=== PATIENT | male | born 1990 | race Caucasian/White ===

== ENCOUNTER 2021-05-01 14:30 | Outpatient (CLI) | payer OTHER, SELFPAY ==
--- NOTE | ~2021-05-01 | XR_ITS ---
EXAMINATION: XR chest 2V EXAM DATE: 05/01/2021 15:08 INDICATION: Cough, chest pain from coughing. Negative COVID 19 test. TECHNIQUE: Frontal and lateral projections of the chest obtained and reviewed. There is no prior mya dy for comparison. FINDINGS: The lungs are clear. There are no pleural effusions. The cardiomediastinal silhouette is within normal limits. There is no pneumothorax suspected. The bones and soft tissues are unremarkab le. IMPRESSION: Normal chest x-ray exam. Reviewed, dictated and finalized at location [facility]. IMPRESSION: Normal chest x-ray exam.
[2021-05-01 14:53] LABS: Basophils Absolute Auto 0.05 K/mm3 (0.00-0.10); Basophils Percent Auto 0.7 % (0.0-1.0); Eosinophils Absolute Auto 0.17 K/mm3 (0.02-0.50); Eosinophils Percent Auto 2.3 % (1.0-6.0); Hematocrit 48.4 % (40.0-54.0); Immature Granulocyte Absolute 0.02 K/mm3 (0.00-0.00); Immature Granulocyte Percent A 0.3 % (0.0-0.0); Lymphocytes Percent Auto 20.6 % (18.0-42.0); Mean Corpuscular HGB Conc 33.1 g/dL (32.0-36.0); Mean Corpuscular Hemoglobin 28.5 pg (27.0-31.0); Mean Corpuscular Volume 86.3 fL (78.0-102.0); Mean Platelet Volume 9.5 fl (8.7-11.0); Monocytes Absolute Auto 0.55 K/mm3 (0.10-0.90); Monocytes Percent Auto 7.5 % (2.0-11.0); Neutrophils Percent Auto 68.6 % (50.0-70.0); Platelet Count Result 227 K/mm3 (150-420); Red Blood Count 5.61 M/mm3 (4.70-6.10); Red Cell Distribution Width 12.1 % (11.6-14.4); White Blood Count 7.3 K/mm3 (4.8-10.8)
[2021-05-01 15:12] LABS: Alanine Aminotransferase 25 U/L (16-63); Albumin Level 4.1 g/dL (3.4-5.0); Alkaline Phosphatase 76 U/L (46-116); Anion Gap 9 mmol/L (8-16); Aspartate Amino Transferase 10 U/L (15-37); Bilirubin,Total 0.4 mg/dL (0.00-1.00); Blood Urea Nitrogen 12 mg/dL (7-18); Calcium 9.4 mg/dL (8.5-10.1); Carbon Dioxide 32 mmol/L (21-32); Chloride 104 mmol/L (98-108); Estimated Glomerular Filt Rate > 60; Glucose 89 mg/dL (70-99); Osmolality Calculated 298 mOsm/kg (285-295); Potassium 4.4 mmol/L (3.5-5.1); Sodium 145 mmol/L (136-145); Total Protein 7.4 g/dL (6.4-8.2)
[2021-05-01 15:18] LABS: Influenza Control Valid (Valid)
== END 2021-05-01 14:31 | disposition home or self-care (01) ==
PROVIDERS: PCP Internal Medicine; Visit Provider Internal Medicine
DX: R05.9 Cough, unspecified (principal); Z20.822 Contact with and (suspected) exposure to COVID-19
CPT/HCPCS: 71046; 80053; 85025; 87081; 87804; 87880

== ENCOUNTER 2022-07-10 06:20 | Emergency (ER) | payer OTHER, SELFPAY ==
--- NOTE | ~2022-07-10 | CT_ITS ---
CT scan of the Neck Technique: 3 mm axial scans were obtained through the neck after intravenous administration of 75 cc Omnipaque. Coronal and sagittal reconstructions of the neck were obtained. Dose reduction technique w as used on this scan by utilizing automated exposure control and iterative reconstruction technique. The dose-length product (DLP) was 433.22 mGy-cm. Clinical History: Left-sided neck swelling Findings: Left submandibular gland is enlarged and edematous as compared to the right side. No distinct stone o r ductal dilatation of the left submandibular gland identified. There is associated surrounding infla mmatory stranding/infiltration of the soft tissues in the left submandibular region, with additional mild infiltration of left parapharyngeal fat. Inflammatory changes extend into the left submental reg ion. No abscess evident. No bora cervical lymphadenopathy identified, though there are shotty lymph nodes in the left lingular region. Parotid glands are unremarkable. No evidence of peritonsillar absc ess. Vascular structures in the neck enhance normally. The pharyngeal mucosal spaces appear normal. No soft tissue masses are seen in the neck. The thyroid gland appears normal. Images of the lung apices reveal no abnormalities. Impression: Findings compatible with infectious/inflammatory sialitis involving the left submandibular gland with associated surrounding soft tissue inflammatory changes. No abscess, stone, or ductal dilatation see n. Reviewed, dictated and finalized at location [] [facility] [employer] Impression: Findings compatible with infectious/inflammatory sialitis involving the left bonilla bmandibular gland with associated surrounding soft tissue inflammatory changes. No abscess, stone, or ductal dilatation seen.
[2022-07-10 06:28] VITALS: BP 144/90; PULSE 85; RESP 18; TEMP 36.3; O2SAT 100
--- NOTE | 2022-07-10 08:44 | ED.GENADULT ---
HPI - General Adult General Chief complaint: Dental/Oral Stated complaint: swelling left lower jaw Time Seen by Provider: 07/10/22 08:10 History of Present Illness HPI narrative: 31-year-old male presenting to the emergency department for evaluation of left-sided neck and facial swelling. Patient states that the swelling began yesterday and worsened this morning. Patient did have a dental appointment last week and denies any associated dental pain. Patient does report associated pain with swallowing and turning his head. Patient was treated for urinary tract infection on Cipro last week. Related Data Allergies Allergy/AdvReac Type Severity Reaction Status Date / Time No Known Allergies Allergy Verified 07/10/22 08:53 Review of Systems Review of Systems: CONSTITUTIONAL: Denies fever, chills, or sweats. EYES: Denies visual changes, redness, or discharge. ENT: See HPI CARDIOVASCULAR: Denies chest pain, palpitations, or edema. RESPIRATORY: Denies cough or dyspnea. GASTROINTESTINAL: Denies abdominal pain, nausea, vomiting, or diarrhea. GENITOURINARY: Denies dysuria or hematuria. SKIN: Denies rash or itching. MUSCULOSKELETAL: Denies back pain, joint pain, or myalgia. NEUROLOGIC: Denies headache, numbness, or weakness. PMFSH Social History Social History Smoking status: Never smoker Exam Narrative: APPEARANCE: Well appearing, no pain, no distress, well-nourished. HEAD: normocephalic, atraumatic. EYES: PERRLA/EOMI, conjunctivae clear. NOSE: Normal no drainage EARS:TMS clear with good light reflex. THROAT: Pharynx clear, no exudate. No posterior pharynx swelling or edema. No asymmetry. Patient does have left-sided submandibular swelling NECK: Supple. No adenopathy, no masses. RESPIRATORY: Airway patent, respirations nonlabored. Clear to auscultation bilaterally, no rales, rhonchi, wheezing. CARDIOVASCULAR: Regular rate and rhythm without murmurs rubs or gallops. ABDOMINAL: Soft, nontender, nondistended, normal bowel sounds MUSCULOSKELETAL: Moves all extremities. Strength/ROM intact, No edema, No calf tenderness. NEURO: Alert. Cranial nerves II through XII intact. Grossly intact SKIN: Warm, dry. Normal Color Course Course Emergency Course: Patient is afebrile and does not have a leukocytosis. Patient's CMP is within normal limits. Patient's CT scan was concerning for Sialadenitis. No evidence of abscess. Patient was started on clindamycin while in the ED. Patient will be discharged on clindamycin. Patient and visitor were updated on the results of the work-up and plan for treatment. All questions and concerns were addressed. Vital Signs Vital signs: Vital Signs Temperature 97.4 F L 07/10/22 06:28 Pulse Rate 85 07/10/22 06:28 Respiratory Rate 18 07/10/22 06:28 Blood Pressure 144/90 H 07/10/22 06:28 Pulse Oximetry 100 07/10/22 06:28 Oxygen Delivery Room Air 07/10/22 06:28 Temperature 97.4 F L 07/10/22 06:28 Pulse Rate 83 07/10/22 12:28 Respiratory Rate 18 07/10/22 12:28 Blood Pressure 137/87 07/10/22 12:28 Pulse Oximetry 100 07/10/22 12:28 Oxygen Delivery Room Air 07/10/22 06:28 Medical Decision Making Vital Signs Vital Signs: Vital Signs Temperature 97.4 F L 07/10/22 06:28 Pulse Rate 85 07/10/22 06:28 Respiratory Rate 18 07/10/22 06:28 Blood Pressure 144/90 H 07/10/22 06:28 Pulse Oximetry 100 07/10/22 06:28 Oxygen Delivery Room Air 07/10/22 06:28 Temperature 97.4 F L 07/10/22 06:28 Pulse Rate 83 07/10/22 12:28 Respiratory Rate 18 07/10/22 12:28 Blood Pressure 137/87 07/10/22 12:28 Pulse Oximetry 100 07/10/22 12:28 Oxygen Delivery Room Air 07/10/22 06:28 Lab Data Lab results reviewed: Yes I reviewed the patient's lab results. 07/10/22 09:28 07/10/22 09:28 Labs: Lab Results 07/10/22 07/10/22 Range/Units 09:28 09:28 WBC 5.8 (4.5-10.0) K/mm3 RBC 5.35 (4.6-6.20) M/mm3
[2022-07-10] MEDS: SODIUM CHLORIDE 0.9% IV 1,000 ML 999 ML IV CONT (08:58)
[2022-07-10 09:36] LABS: Basophils Percent Auto 0.5 % (0.2-1.2); Eosinophils Absolute Auto 0.1 K/mm3 (0-0.3); Eosinophils Percent Auto 2.1 % (0-4.4); Hemoglobin 14.9 g/dL (14.0-18.0); Immature Granulocyte Absolute 0.04 K/mm3 (0.00-0.031); Immature Granulocyte Percent A 0.7 % (0-0.5); Lymphocytes Absolute Auto 1.34 K/mm3 (0.9-3.2); Mean Corpuscular HGB Conc 33.1 g/dl (32-36); Mean Corpuscular Hemoglobin 27.9 pg (26-34); Mean Corpuscular Volume 84.1 fl (80-100); Mean Platelet Volume 9.2 fl (7.4-10.4); Monocytes Absolute Auto 0.5 K/mm3 (0.1-0.6); Monocytes Percent Auto 8.4 % (2.6-8.5); Neutrophils Absolute Auto 3.8 K/mm3 (1.3-6.7); Neutrophils Percent Auto 65.3 % (45.5-73.1); Platelet Count Result 212 k/mm3 (150-375); Red Blood Count 5.35 M/mm3 (4.6-6.20); Red Cell Distribution Width 12.1 % (11.5-14.5); White Blood Count 5.8 K/mm3 (4.5-10.0)
[2022-07-10 09:46] LABS: Alanine Aminotransferase 23 U/L (6-50); Albumin Level 4.5 g/dL (3.5-5.1); Alkaline Phosphatase 67 U/L (38-126); Anion Gap 4 mmol/L (8-16); Aspartate Amino Transferase 21 U/L (17-59); Bilirubin,Total 0.5 mg/dL (0.2-1.3); Blood Urea Nitrogen 14 mg/dL (9-20); Calcium 8.6 mg/dL (8.4-10.2); Carbon Dioxide 29 mmol/L (22-30); Chloride 104 mmol/L (98-107); Estimated CRCL calculation 115 ml/min; Estimated Glomerular Filt Rate > 60; Glucose 96 mg/dL (65-110); Sodium 137 mmol/L (137-145)
[2022-07-10] MEDS: CLINDAMYCIN 600 MG/D5W 50 ML 600 MG/50 ML PIGGYBACK 100 MG IVPB (11:17)
[2022-07-10 12:28] VITALS: BP 137/87; PULSE 83; RESP 18; O2SAT 100
== END 2022-07-10 12:31 | disposition home or self-care (01) ==
PROVIDERS: Emergency Provider Emergency Medicine
DX: K11.20 Sialoadenitis, unspecified (principal)
CPT/HCPCS: 36415; 70491; 80053; 85025; 96361; 96365; 99284; J7030; Q9967

== ENCOUNTER → 2023-05-15 11:49 | Outpatient (CLI) | payer OTHER, SELFPAY ==
--- NOTE | ~2023-05-15 | US_ITS ---
US soft tissue groin LT DATE: 05/15/2023 12:08 INDICATION: Left inguinal, scrotal pain TECHNIQUE: Real-time imaging of left inguinal soft tissues COMPARISON: None FINDINGS: No apparent inguinal hernia is identified. CT examination would be more sensitive and accur ate for detection of inguinal hernias. No suspicious soft tissue mass or enlarged lymph nodes are not ed. IMPRESSION: No abnormality detected at the left inguinal area Reviewed, dictated and finalized at [facility]. Reviewed, dictated and finalized at location [facility].
== END ==
DX: K40.90 Unilateral inguinal hernia, without obstruction or gangrene, not specified as recurrent (principal)
CPT/HCPCS: 76882

== ENCOUNTER 2023-05-16 08:39 | Outpatient (CLI) | payer OTHER, SELFPAY ==
--- NOTE | ~2023-05-16 | CT_ITS ---
CT of the Abdomen and Pelvis: Indication: Inguinal hernia, nausea Technique: 2.5 mm axial scans were obtained through the abdomen and pelvis following intravenous adm inistration of 100 cc of Omnipaque 350. Dose reduction technique was used on this scan by utilizing a utomated exposure control and iterative reconstruction technique. The dose-length product (DLP) was 5 01.71 mGy-cm. Findings: Scans through the lung bases are unremarkable. The liver, spleen, pancreas, gallbladder, adrenals and kidneys are within normal limits. No evidence of aortic aneurysm. No lymphadenopathy. No bowel obstruction or bowel wall thickening. There is no evidence to suggest acute appendicitis. Images through the pelvis were performed. Urinary bladder unremarkable. Prostate gland and seminal ve sicles are unremarkable. No ascites. Impression: No significant abnormalities seen. No hernia identified. Reviewed, dictated and finalized at [facility]. Impression: No significant abnormalities seen. No hernia identified.
== END 2023-05-16 08:40 | disposition home or self-care (01) ==
LOC: CHSIMG 08:43
DX: K40.90 Unilateral inguinal hernia, without obstruction or gangrene, not specified as recurrent (principal)
CPT/HCPCS: 74177; Q9967